=== PATIENT | male | born 2000 | race Two or more races ===

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

== ENCOUNTER 2020-11-21 07:11 | Emergency (ER) | payer MEDICAID, OTHER ==
[~2020-11-21] VITALS: Ht 162.6 cm; Wt 62.3 kg
[2020-11-21 07:15] VITALS: BP 143/77
[2020-11-21] MEDS ORDERED: BIPOLAR MED PO (07:22)
[2020-11-21] MEDS ORDERED: [UNRECOGNIZED DRUG - REMARK] PO (07:22)
[2020-11-21] MEDS ORDERED: ACETAMINOPHEN 500 MG TABLET PO ONE (08:00)
[2020-11-21] MEDS ORDERED: KETOROLAC TROMETHAMINE 30 MG/ML VIAL IM ONE (08:00)
== END 2020-11-21 08:41 | disposition home or self-care (01) ==
LOC: EMS 07:24
DX: K08.89 Other specified disorders of teeth and supporting structures (principal); F31.9 Bipolar disorder, unspecified
CPT/HCPCS: 96372; 99283; J1885